=== PATIENT | female | born 1960 | race Two or more races ===

== ENCOUNTER → 2019-04-28 | Day surgery (SDC) | payer MEDICARE ==
[2019-04-23 13:03] LABS: BASOPHILS # (AUTO) 0.1 (0.0-0.1); BASOPHILS % 0.7 % (0.0-1.0); EOSINOPHILS # (AUTO) 0.1 (0.0-0.4); EOSINOPHILS % 0.7 % (0.0-6.0); HEMOGLOBIN 13.9 g/dL (12.0-16.0); LYMPHOCYTES # (AUTO) 2.4 (1.0-3.2); LYMPHOCYTES % 31.6 % (18.0-39.1); MEAN CORPUSCULAR HEMOGLOBIN 32.3 pg (28-32); MEAN CORPUSCULAR HGB CONC 33.1 g/dL (31-35); MEAN CORPUSCULAR VOLUME 97.4 fL (81-99); MONOCYTES # (AUTO) 0.6 (0.2-0.8); MONOCYTES % 8.3 % (4.4-11.3); NEUTROPHILS # (AUTO) 4.4 (2.1-6.9); NEUTROPHILS % 58.4 % (38.7-80.0); PLATELET COUNT 223 x10e3/uL (140-360); RED BLOOD COUNT 4.31 x10e6/uL (3.6-5.1); RED CELL DISTRIBUTION WIDTH 11.8 % (11.7-14.4)
[~2019-04-28] MED LIST: HYOSCYAMINE 0.125 MG TAB ONE; LIDOCAINE HCL 2% LOCAL INJ 5 ML SDV VIAL INJ ONE; MIDAZOLAM HCL 2 MG/2 ML VIAL ONE; PROPOFOL IV EMULSION 10 MG/ML 50 ML VIAL ONE
--- OUTSIDE RECORDS SUMMARY | 2019-04-28 08:46 | XMS REPORT ---
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 Allergies, Adverse Reactions, Alerts This patient has no known allergies or adverse reactions. Medications This patient has no known medications. Encounters Start Date/Time End Date/Time Encounter Type Admission Type Attending [facility] Care Department Encounter ID 2018-08-11 00:00:00 2018-08-11 00:00:00 Outpatient [facility] [id number] 2018-06-30 16:16:38 2018-06-30 16:16:38 Outpatient [facility] [id number] 2018-06-30 14:14:40 2018-06-30 14:14:40 Outpatient [facility] [id number] 2018-06-30 13:06:14 2018-06-30 13:06:14 Outpatient [facility] [id number] 2018-01-15 08:56:17 2018-01-15 08:56:17 Outpatient [facility] [id number] 2018-01-14 14:11:57 2018-01-14 14:11:57 Outpatient [facility] [id number] 2018-01-02 11:02:56 2018-01-02 11:02:56 Outpatient [facility] [id number] 2018-01-01 00:00:00 2018-01-01 00:00:00 Outpatient [facility] [id number] 2017-12-31 15:27:34 2017-12-31 15:27:34 Outpatient [facility] [id number] 2017-12-31 10:26:14 2017-12-31 10:26:14 Outpatient [facility] [id number] 2017-12-31 09:06:28 2017-12-31 09:06:28 Outpatient [facility] [id number] 2017-12-30 13:43:19 2017-12-30 13:43:19 Outpatient [facility] [id number]
[2019-04-28 12:40] VITALS: BP 111/68
--- NOTE | 2019-04-28 19:00 | Operative Report ---
DATE OF PROCEDURE: 04/28/2019 SURGEON: Adrian Gregory MD PROCEDURE: Colonoscopy with polypectomy and biopsies. INDICATION FOR PROCEDURE: Colorectal cancer screening, brother with colon cancer. MEDICATIONS: The patient was done under MAC, please see anesthesiologist's note. PROCEDURE IN DETAIL: With the patient in the left lateral decubitus position, a flexible fiberoptic Olympus colonoscope was inserted into the rectum with ease and advanced all the way to the cecum. It was then withdrawn slowly, mucosa overlying the cecum, ascending colon as well as the transverse and descending, other than for some scattered diverticular disease appeared to be within normal limits. The colon was spastic and irritable and somewhat tortuous and was suboptimally visualized. Two polyps were hot biopsied from the sigmoid colon. The mucosa overlying the rectum revealed some patchy mild inflammatory changes and biopsies were obtained. Also, a minute polyp was hot biopsied from the distal rectum. The scope was then retroflexed into the distal rectum and small internal hemorrhoids were noted, none of which was actively bleeding. The scope was then straightened out, it was subsequently withdrawn, and the patient tolerated the procedure well. IMPRESSION: 1. Diverticulosis. 2. Sigmoid colon polyps x2, hot biopsied. 3. Rectal polyp x1, hot biopsied. 4. Proctitis, biopsied. 5. Internal hemorrhoids, none actively bleeding. PLAN: Follow up histology. Initiate Bentyl 10 mg 1 p.o. t.i.d. VSL#3 one p.o. daily. The patient might benefit from a followup colonoscopy in 3 years. Adrian Gregory MD [facility] [place] /[id number] cc: Dana Lazaro MD
== END | disposition home or self-care (01) ==
LOC: OR 08:40
PROVIDERS: ATTEND Internal Medicine Gastroenterology
DX: Z12.11 Encounter for screening for malignant neoplasm of colon (principal); K63.5 Polyp of colon; K62.1 Rectal polyp; K57.30 Diverticulosis of large intestine without perforation or abscess without bleeding; K62.89 Other specified diseases of anus and rectum; K58.9 Irritable bowel syndrome, unspecified; K64.8 Other hemorrhoids; J44.9 Chronic obstructive pulmonary disease, unspecified; M48.00 Spinal stenosis, site unspecified; Z88.1 Allergy status to other antibiotic agents; F31.9 Bipolar disorder, unspecified; F41.9 Anxiety disorder, unspecified; F17.210 Nicotine dependence, cigarettes, uncomplicated; Z01.810 Encounter for preprocedural cardiovascular examination; Z01.812 Encounter for preprocedural laboratory examination; Z80.0 Family history of malignant neoplasm of digestive organs
CPT/HCPCS: 36415; 45380; 45384; 85025; 88305; 93005; J2001; J2250; J2704; 45378

== ENCOUNTER → 2019-05-31 | Outpatient (CLI) | payer MEDICARE ==
--- NOTE | 2019-06-01 08:33 | Diagnostic Imaging Report ---
Exam: Bone mineral density study. History: Osteoporosis screening Comparison: None Discussion: Evaluation of the left hip and lumbar spine was performed utilizing DEXA Hologic bone densitometer. The study is technically adequate. The patient's fracture risk is compared to an age-matched control. The patient denies prior surgery/fracture of the spine, hips or forearm. Left hip femoral neck bone mineral density: 0.537 g/cm2, T-score is -2.8, Z-score is -1.5. Left hip total bone mineral density: 0.551 g/cm2, T-score is -3.2, Z-score is -2.2. Lumbar spine total bone mineral density: 0.596 gm/cm2, T-score is -4.1, Z-score is -2.6. Impression: 1. Bone mineralization by WHO Classification of the left hip is osteoporosis, the fracture risk is increased. 2. Bone mineralization by WHO Classification of the lumbar spine is osteoporosis, the fracture risk is increased. Recommendations: Medical evaluation for secondary causes of low bone mineral density may be appropriate. Correlate clinically for the necessity and timing of the next bone mineral density study. Signed by: Dr. Amarjit Fisher MD on 06/01/2019 8:30 AM
== END ==
LOC: MAMMO 10:54
PROVIDERS: ATTEND Internal Medicine
DX: Z12.31 Encounter for screening mammogram for malignant neoplasm of breast (principal); M89.9 Disorder of bone, unspecified
CPT/HCPCS: 77067; 77080